=== PATIENT | female | born 1960 | race Caucasian/White ===

== ENCOUNTER → 2016-02-11 | Outpatient (CLI) | payer OTHER ==
[~2016-02-11] MED LIST: BIOT1CAP8 PO; BIOTCAP2 PO; CHOL2000 PO; CLB/200 PO; CYCL10TA6 PO; DOCU-105 PO; ESTRADIOL TOP; FLUT0.15 NAE; HYDR-5688 PO; LMC/150 PO; LOSA1TAB PO; LYR50 PO; MULT-506 PO; NEBI2.5T2 PO; NUTRTAB40 PO; OMEP20CA9 PO; OXYC-57 PO; PRAZ2CAP3 PO; PRD/1 PO; PRED10TA PO; PREG100C PO; PREG1CAP28 PO; PRMVC PV; SERT-234 PO; SPR25 PO; SRQ300 PO; TPRSR/25 PO; VITATAB19 PO; VST25HP PO
--- NOTE | 2016-02-11 13:03 | DIAGNOSTIC IMAGING REPORT ---
CHEST 2 VIEWS ROUTINE CLINICAL HISTORY: INFLUENZA LIKE ILLNESS COMPARISON STUDY: Chest radiograph December 31, 2009. FINDINGS: Lung volumes are normal. The left heart border slightly obscured. Right lung is clear. There is no evidence of pulmonary edema. Cardiac size is normal. Mediastinal contours are normal. IMPRESSION: Slight obscuration of the left heart border. The findings may reflect mild lingular airspace opacity. This could reflect atelectasis, consolidation or epicardial fat pad. Electronically signed by: Zen Wolfe M.D. 02/11/2016 1:01 PM
== END | disposition home or self-care (01) ==
LOC: C.RAD1850 12:42
PROVIDERS: ATTEND Family Medicine
DX: R69 Illness, unspecified (principal)

== ENCOUNTER → 2016-03-05 | Outpatient (CLI) | payer OTHER ==
[~2016-03-05] MED LIST changes: -ESTRADIOL TOP; -LOSA1TAB PO; -LYR50 PO; -NEBI2.5T2 PO; -NUTRTAB40 PO; -OXYC-57 PO; -VITATAB19 PO
--- NOTE | 2016-03-05 12:26 | MAMMOGRAPHY REPORT ---
BILATERAL DIGITAL SCREENING MAMMOGRAM TOMOSYNTHESIS WITH CAD: 03/05/2016 CLINICAL HISTORY: Routine screening. Patient has no complaints. TECHNIQUE: Breast tomosynthesis in addition to standard 2D mammography was performed. Current study was also evaluated with a Computer Aided Detection (CAD) system. COMPARISON: Comparison is made to exams dated: 02/04/2015 mammogram, 11/28/2012 mammogram, 6 mammogram, 02/18/2015 mammogram, 11/29/2013 mammogram, and 12/05/2012 mammogram - [facility]. BREAST COMPOSITION: The tissue of both breasts is heterogeneously dense, which may obscure small ma sses. FINDINGS: No suspicious masses, calcifications, or areas of architectural distortion are noted in e ither breast. There has been no significant interval change compared to prior exams. A biopsy marke r clip is noted in the right upper outer quadrant from prior benign stereotactic biopsy. Scattered bilateral benign-appearing calcifications are not significantly changed. IMPRESSION: ACR BI-RADS CATEGORY 2: BENIGN There is no mammographic evidence of malignancy. A 1 year screening mammogram is recommended. The p atient will receive written notification of the results. Approximately 10% of breast cancers are not detected with mammography. A negative mammographic repor t should not delay biopsy if a clinically suggestive mass is present. Lashae Keyes M.D. /:03/05/2016 12:14:59 Family Mediator: Bienvenido TONY)(Monae), [facility] letter sent: Normal 1/2 BI-RADS Code: ACR BI-RADS Category 2: Benign
== END | disposition home or self-care (01) ==
LOC: C.MAMM 11:20
PROVIDERS: ATTEND Obstetrics & Gynecology
DX: Z12.31 Encounter for screening mammogram for malignant neoplasm of breast (principal)

== ENCOUNTER → 2016-03-17 | Outpatient (CLI) | payer OTHER ==
--- NOTE | 2016-03-17 11:53 | DIAGNOSTIC IMAGING REPORT ---
RIGHT SHOULDER MIN 2 VIEWS ROUTINE CLINICAL HISTORY: M35.3 Polymyalgia [id number] Right shoulder painM75.51 Ac Right pain COMPARISON: None. DISCUSSION: Mild degenerative change glenohumeral joint. Mild degenerative change lateral aspect humeral head. Mild to moderate degenerative change acromioclavicular joint. No evidence for lytic or blastic process. There is no evidence for soft tissue swelling. IMPRESSION: Mild to moderate degenerative change. No acute bony abnormality. No evidence for bony erosive change. Electronically signed by: Ferny Martínez M.D. 03/17/2016 11:51 AM Dictated Date/Time: 03/17/2016 11:43 AM
--- NOTE | 2016-03-17 12:08 | DIAGNOSTIC IMAGING REPORT ---
C-SPINE ROUTINE 4 OR 5 VIEWS CLINICAL HISTORY: Polymyalgia rheumatica. Right shoulder pain. COMPARISON STUDY: Cervical spine MRI November 13, 2008. FINDINGS: There is straightening of the normal cervical lordosis. Vertebral body heights are maintained. No acute fracture or suspicious lesion is identified. There is moderate disc space narrowing at C5-C6 and moderate to marked disc space narrowing at C6-C7. There is moderate multilevel facet arthrosis within the lower cervical spine. Atlantodental interval is at the upper limits of normal. IMPRESSION: 1. No cervical spine fracture. 2. Moderate multilevel degenerative disc disease and facet arthrosis of the cervical spine, most pronounced at C6-C7. Electronically signed by: Zen Wolfe M.D. 03/17/2016 12:07 PM Dictated Date/Time: 03/17/2016 12:05 PM
== END | disposition home or self-care (01) ==
LOC: C.RAD1850 10:50
PROVIDERS: ATTEND Internal Medicine Rheumatology
DX: M25.511 Pain in right shoulder (principal); M35.3 Polymyalgia rheumatica; M75.51 Bursitis of right shoulder

== ENCOUNTER → 2016-03-31 | Day surgery (SDC) | payer OTHER ==
[2016-03-30 13:19] VITALS: Ht 162.6 cm; Wt 77.3 kg
[~2016-03-31] VITALS: Ht 162.6 cm; Wt 77.3 kg
[~2016-03-31] MED LIST changes: +BUPIVACAINE 0.25% 2.5MG/ML PF 10 ML VIAL INFIL ONE; -CLB/200 PO; +LIDOCAINE HCL 1% 20 ML VIAL ONE
--- NOTE | 2016-03-31 14:08 | History & Physical Bridge - SC ---
H&P Re-Evaluation Bridge Note: I have examined the patient, reviewed the History & Physical and in the interval since the performance of the History & Physical I have noted the following changes of clinical significance: No changes noted
[2016-03-31 15:04] VITALS: TEMP 37.2
--- NOTE | 2016-03-31 15:11 | Discharge Instructions ---
Discharge Instructions Visit Reason for Visit: Lumbar Spondylosis Without Myelopathy Or Radiculop Discharge Discharge Diagnosis / Problem: low back pain Discharge Goals Goal(s): Decrease discomfort, Improve function Activity Recommendations Activity Limitations: resume your previous activity Anesthesia . Post Anesthesia Instructions: If you have had General Anesthesia or IV Sedation: * Do not drive today. * Resume driving when surgeon permits. * Do not make important decisions or sign legal documents today. * Call surgeon for: 1. Temperature elevations greater than 101 degrees F. 2. Uncontrollable pain. 3. Excessive bleeding. 4. Persistent nausea and vomiting. 5. Medication intolerance (nausea, vomiting or rash). * For nausea and vomiting use only clear liquids such as: tea, soda, bouillon until nausea subsides, then gradually increase diet as tolerated. * If you have any concerns or questions, call your surgeon's office. If physician is unavailable and it is an emergency, call 911 or go to the nearest emergency room. . Diet Recommendations Recommended Home Diet: resume previous diet Procedures Procedures Performed: BILATERAL L5-S1 RADIO FREQUENCY DENERVATION Pending Studies Studies pending at discharge: no Medical Emergencies . Who to Call and When: Medical Emergencies: If at any time you feel your situation is an emergency, please call 911 immediately. . Non-Emergent Contact Non-Emergency issues call your: Specialist . . "Provider Documentation" section prepared by Tacho Cotton.
[2016-03-31 15:17] VITALS: BP 138/84; PULSE 71; O2SAT 96
--- NOTE | 2016-03-31 15:51 | OPERATIVE REPORT ---
DATE OF OPERATION: 03/31/2016 PREOPERATIVE DIAGNOSIS: Lumbar facet arthropathy, bilateral L5-S1 facet arthropathy with chronic low back pain. POSTOPERATIVE DIAGNOSIS: Same. PROCEDURE: Bilateral L5-S1 radiofrequency denervation procedure. SURGEON: Dr. Tacho Cototn. CONSENT: Verbal and written consent was obtained from the patient. Risks and benefits were reviewed. Risks include but are not limited to an abscess, allergic reaction and denervation. She wishes to proceed. PHYSICAL EXAMINATION: Pleasant female seated comfortably. She is point tender to palpation over L5-S1 facet areas. These are worse with extension, rotation. She has normal motor and sensory exam. PROCEDURE: The patient was taken back to the special procedures room of [facility]. She was maintained in a prone position. Backside was cleansed with Betadine x3 and a dry sterile dressing was applied. Fluoroscope was used to identify the L5 sacral hiatus and the sacral ala on the left side. Overlying skin was anesthetized with 1.5 mL of lidocaine 1% with a 1-1/2 inch 25 gauge 1.5-inch needle. She then had sensory stimulation done at both sites with sensitivity to 0.2 volts. Motor stimulation provoked paraspinal spasms, but nothing radiating down the leg or beyond the top of the buttocks. She had this done at both levels and then had an anesthetization with 1 mL done at both levels and then underwent denervation 80 degrees 100 seconds x2 at L5, then at the sacral ala without problems. Following the denervation, she was injected with 1 mL of bupivacaine 0.25% at each site. The right L5 transverse process junction and the right sacral ala then were fluoroscopically identified. Overlying skin anesthetized with 1.5 mL of lidocaine 1% with a 25 gauge 1.5-inch needle. A 22 gauge 10 cm Commissioner needle contacted the bony target at each site as it had done previously and stimulated to 0.2 and 0.1 volts respectively at L5 and the sacral ala. Motor stimulation provoked localized robust paraspinal thumping but nothing radiating down the leg or the foot. She underwent anesthetization with 1 mL lidocaine 1% at each site and then denervation 80 degrees 100 seconds x2 at each site. This was followed by bupivacaine 0.25% 1 mL at each site which was tolerated. DISPOSITION: 1. The patient is taken out into the discharge recovery area where she will be discharged home once discharge criteria have been met. 2. Follow up in the [facility] office in 2-4 weeks. I attest to the content of the Intraoperative Record and any orders documented therein. Any exceptio ns are noted below.
== END | disposition home or self-care (01) ==
LOC: X.SURG 13:14
PROVIDERS: ATTEND Physical Medicine & Rehabilitation
DX: M12.88 Other specific arthropathies, not elsewhere classified, other specified site (principal); M54.5 Low back pain

== ENCOUNTER → 2016-05-13 | Outpatient (CLI) | payer OTHER ==
[~2016-05-13] MED LIST changes: -BUPIVACAINE 0.25% 2.5MG/ML PF 10 ML VIAL INFIL ONE; +ESTRADIOL TOP; -LIDOCAINE HCL 1% 20 ML VIAL ONE; +LOSA1TAB PO; +NEBI2.5T2 PO; +NUTRTAB40 PO
== END | disposition home or self-care (01) ==
LOC: C.LAB1850 10:24
PROVIDERS: ATTEND Internal Medicine Rheumatology
DX: M35.3 Polymyalgia rheumatica (principal); M75.51 Bursitis of right shoulder; R77.8 Other specified abnormalities of plasma proteins

== ENCOUNTER → 2016-05-19 | Outpatient (CLI) | payer OTHER | END | disposition home or self-care (01) | LOC: C.PAPS 08:47 | PROVIDERS: ATTEND Obstetrics & Gynecology | DX: Z12.4 Encounter for screening for malignant neoplasm of cervix (principal); Z87.42 Personal history of other diseases of the female genital tract ==

== ENCOUNTER → 2016-05-19 | Outpatient (CLI) | payer OTHER | END | disposition home or self-care (01) | LOC: C.LAB1850 14:51 | PROVIDERS: ATTEND Obstetrics & Gynecology | DX: R61 Generalized hyperhidrosis (principal); Z12.4 Encounter for screening for malignant neoplasm of cervix; Z87.42 Personal history of other diseases of the female genital tract ==

== ENCOUNTER → 2016-05-27 | Day surgery (SDC) | payer OTHER ==
[2016-04-30 08:44] VITALS: Ht 162.6 cm; Wt 77.3 kg
[~2016-05-27] VITALS: Ht 162.6 cm; Wt 77.3 kg
[~2016-05-27] MED LIST changes: +BUPIVACAINE 0.25% 2.5MG/ML PF 10 ML VIAL INFIL ONE; +LIDOCAINE HCL 1% 20 ML VIAL ONE
[2016-05-27 13:49] VITALS: BP 125/76; PULSE 70; TEMP 36.7; O2SAT 95
--- NOTE | 2016-05-27 13:57 | Discharge Instructions ---
Discharge Instructions Date of Service May 27, 2016. Visit Reason for Visit: Lumbar Spondylosis Discharge Discharge Diagnosis / Problem: low back pain Discharge Goals Goal(s): Decrease discomfort, Improve function Activity Recommendations Activity Limitations: resume your previous activity Anesthesia . Post Anesthesia Instructions: If you have had General Anesthesia or IV Sedation: * Do not drive today. * Resume driving when surgeon permits. * Do not make important decisions or sign legal documents today. * Call surgeon for: 1. Temperature elevations greater than 101 degrees F. 2. Uncontrollable pain. 3. Excessive bleeding. 4. Persistent nausea and vomiting. 5. Medication intolerance (nausea, vomiting or rash). * For nausea and vomiting use only clear liquids such as: tea, soda, bouillon until nausea subsides, then gradually increase diet as tolerated. * If you have any concerns or questions, call your surgeon's office. If physician is unavailable and it is an emergency, call 911 or go to the nearest emergency room. . Diet Recommendations Recommended Home Diet: resume previous diet Procedures Procedures Performed: BILATERAL L4-5 RADIO FREQUENCY DENERVATION Pending Studies Studies pending at discharge: no Medical Emergencies . Who to Call and When: Medical Emergencies: If at any time you feel your situation is an emergency, please call 911 immediately. . Non-Emergent Contact Non-Emergency issues call your: Specialist . . "Provider Documentation" section prepared by Tacho Cotton. .
--- NOTE | 2016-05-27 14:23 | OPERATIVE REPORT ---
DATE OF OPERATION: 05/27/2016 PREOPERATIVE DIAGNOSIS: Bilateral L4-L5 facet arthropathy. POSTOPERATIVE DIAGNOSIS: Same. PROCEDURE: Bilateral L4 facet radiofrequency denervation. INDICATIONS: The patient is a 55-year-old white female that underwent bilateral L5-S1 facet a number of weeks ago with complete relief of lower back pain; however, she reports that she still has some residual pain above the level of the denervation and was inquiring about denervating a higher up level. PHYSICAL EXAMINATION: She has point tenderness to palpation of bilateral L4 facet, nontender below this, worse with extension, rotation. CONSENT: Verbal and written consent was obtained from the patient. Risks and benefits were reviewed. Risks include but are not limited to allergic reaction, abscess, and denervation. She wishes to proceed. PROCEDURE: The patient was taken back to the special procedures room of the [facility] where she was maintained in a prone position. Backside was cleansed with Betadine x3 and a dry sterile dressing was applied. Fluoroscope was used to identify the L4 transverse process on the left and the overlying skin was anesthetized with 2.5 mL of lidocaine 1% with a 25 gauge 1.5-inch needle. A 22 gauge 10 cm [place] needle was then directed towards the L4 transverse process. Sensory stimulation provoked sensation at 0.2 volts and motor stimulation produced robust paraspinal spasms nothing radiating down the leg. She underwent an additional anesthetization of the nerve area with 1 mL lidocaine 1% and then underwent denervation 80 degrees 100 seconds x1 and on the second one, she developed significant pain in the low back and that was stopped at 32 seconds. This was then followed by a milliliter injection of bupivacaine 0.25%. The right L4 transverse process junction was then fluoroscopically identified. Overlying skin was anesthetized with 2.5 mL of lidocaine 1% with a 25 gauge 1.5-inch needle. A 22 gauge 10 cm [place] needle then contacted the bony target. Sensory stimulation was as sensitive as 0.2 volts. Motor stimulation provoked robust paraspinal spasms and she then underwent injection after negative aspiration of 1 mL lidocaine 1%, underwent following the additional numbing denervation 80 degrees 100 seconds x2 and then additional 1 mL of bupivacaine 0.25% was injected in. Procedure was well tolerated. DISPOSITION: The patient is taken out into the discharge recovery area. The procedure was only done bilaterally at L4 because she had recently had bilaterally done at L5, so we were able to block an additional level L4-L5 with just a single level today as she has previously had L5-S1 blocked, in the past 4 weeks. It should provide her with relief bilaterally at L4-L5 and L5-S1 for months to come. She will followup in the [facility] office for reevaluation. I attest to the content of the Intraoperative Record and any orders documented therein. Any exceptio ns are noted below.
== END | disposition home or self-care (01) ==
LOC: X.SURG 11:57
PROVIDERS: ATTEND Physical Medicine & Rehabilitation
DX: M47.816 Spondylosis without myelopathy or radiculopathy, lumbar region (principal); Z79.899 Other long term (current) drug therapy

== ENCOUNTER → 2016-06-18 | Outpatient (CLI) | payer OTHER ==
[~2016-06-18] MED LIST changes: -BUPIVACAINE 0.25% 2.5MG/ML PF 10 ML VIAL INFIL ONE; -LIDOCAINE HCL 1% 20 ML VIAL ONE
== END | disposition home or self-care (01) ==
LOC: C.LAB1850 11:43
PROVIDERS: ATTEND Internal Medicine Rheumatology
DX: M35.3 Polymyalgia rheumatica (principal)

== ENCOUNTER 2016-06-25 16:59 | Emergency (ER) | payer OTHER ==
[~2016-06-25] VITALS: Ht 160 cm; Wt 82.0 kg
[~2016-06-25 16:59] MED LIST changes: -BIOTCAP2 PO; -CHOL2000 PO; -DOCU-105 PO; -ESTRADIOL TOP; -HYDR-5688 PO; -LMC/150 PO; -LOSA1TAB PO; -NEBI2.5T2 PO; -NUTRTAB40 PO; -OMEP20CA9 PO; -SRQ300 PO; -TPRSR/25 PO; -VST25HP PO
[2016-06-25 17:02] VITALS: TEMP 37; Ht 160 cm; Wt 82.0 kg
[2016-06-25] MEDS ORDERED: HYDROCODONE/ACETAMOPHEN 5/325MG TAB PO ONE (18:30)
[2016-06-25 18:35] VITALS: BP 148/65; PULSE 75; O2SAT 94
[2016-06-25] MEDS ORDERED: BIOTCAP2 PO (18:38)
[2016-06-25] MEDS ORDERED: VST25HP PO (18:38)
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
[2016-06-25] MEDS ORDERED: HYDR-5688 PO (18:53)
[2016-06-25] MEDS ORDERED: OMEP20CA9 PO (18:59)
[2016-06-25] MEDS ORDERED: SRQ300 PO (18:59)
[2016-06-25] MEDS ORDERED: DOCU-105 PO (19:10)
[2016-06-25] MEDS ORDERED: CHOL2000 PO (19:10)
[2016-06-25] MEDS ORDERED: LMC/150 PO (19:10)
[2016-06-25] MEDS ORDERED: TPRSR/25 PO (21:18)
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
[2016-11-17] MEDS ORDERED: LOSA1TAB PO (12:16)
[2017-01-03] MEDS ORDERED: NEBI2.5T2 PO (14:17)
[2017-01-03] MEDS ORDERED: NUTRTAB40 PO (14:17)
[2017-01-03] MEDS ORDERED: ESTRADIOL TOP (14:18)
== END 2016-06-25 19:05 | disposition home or self-care (01) ==
LOC: C.EDB 17:00 → C.EDD 19:05
DX: R68.84 Jaw pain (principal); M54.5 Low back pain; V43.52XA Car driver injured in collision with other type car in traffic accident, initial encounter; Y92.488 Other paved roadways as the place of occurrence of the external cause; G89.29 Other chronic pain; M48.00 Spinal stenosis, site unspecified; I10 Essential (primary) hypertension; K21.9 Gastro-esophageal reflux disease without esophagitis; M35.3 Polymyalgia rheumatica; F43.10 Post-traumatic stress disorder, unspecified; F32.9 Major depressive disorder, single episode, unspecified; F41.9 Anxiety disorder, unspecified; Z90.49 Acquired absence of other specified parts of digestive tract; Z79.899 Other long term (current) drug therapy

== ENCOUNTER → 2016-07-28 | Day surgery (SDC) | payer OTHER ==
[2016-07-16 15:24] VITALS: Ht 162.6 cm; Wt 77.3 kg
[~2016-07-28] VITALS: Ht 162.6 cm; Wt 77.3 kg
[~2016-07-28] MED LIST changes: +AcetaZOLAMIDE 250 MG TAB ONE; -BIOT1CAP8 PO; +BIOTCAP2 PO; +BUPIVACAINE 0.25% 2.5MG/ML PF 10 ML VIAL ONE; +CHOL2000 PO; +DOCU-105 PO; +ESTRADIOL TOP; +IOPAMIDOL INJ 61% 15 ML VIAL ONE; +LIDOCAINE HCL 1% MPF 5 ML VIAL ONE; +LMC/150 PO; +LOSA1TAB PO; +NEBI2.5T2 PO; +NUTRTAB40 PO; +OMEP20CA9 PO; -PREG1CAP28 PO; +SRQ300 PO; +TPRSR/25 PO; +VST25HP PO
--- NOTE | 2016-07-28 15:56 | Discharge Instructions ---
Discharge Instructions Date of Service Jul 28, 2016. Visit Reason for Visit: Sacroiliitis Discharge Discharge Diagnosis / Problem: low back pain Discharge Goals Goal(s): Decrease discomfort, Improve function Activity Recommendations Activity Limitations: resume your previous activity Anesthesia . Post Anesthesia Instructions: If you have had General Anesthesia or IV Sedation: * Do not drive today. * Resume driving when surgeon permits. * Do not make important decisions or sign legal documents today. * Call surgeon for: 1. Temperature elevations greater than 101 degrees F. 2. Uncontrollable pain. 3. Excessive bleeding. 4. Persistent nausea and vomiting. 5. Medication intolerance (nausea, vomiting or rash). * For nausea and vomiting use only clear liquids such as: tea, soda, bouillon until nausea subsides, then gradually increase diet as tolerated. * If you have any concerns or questions, call your surgeon's office. If physician is unavailable and it is an emergency, call 911 or go to the nearest emergency room. . Diet Recommendations Recommended Home Diet: resume previous diet Procedures Procedures Performed: Right Sacroiliac Joint Injection Pending Studies Studies pending at discharge: no Medical Emergencies . Who to Call and When: Medical Emergencies: If at any time you feel your situation is an emergency, please call 911 immediately. . Non-Emergent Contact Non-Emergency issues call your: Specialist . . "Provider Documentation" section prepared by Tacho Cotton. .
[2016-07-28 16:02] VITALS: BP 127/81; PULSE 60; O2SAT 95
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
== END | disposition home or self-care (01) ==
LOC: X.SURG 14:14
PROVIDERS: ATTEND Physical Medicine & Rehabilitation
DX: M46.1 Sacroiliitis, not elsewhere classified (principal)

== ENCOUNTER → 2016-07-31 | Outpatient (CLI) | payer OTHER ==
[~2016-07-31] MED LIST changes: -AcetaZOLAMIDE 250 MG TAB ONE; -BUPIVACAINE 0.25% 2.5MG/ML PF 10 ML VIAL ONE; -IOPAMIDOL INJ 61% 15 ML VIAL ONE; -LIDOCAINE HCL 1% MPF 5 ML VIAL ONE
== END | disposition home or self-care (01) ==
LOC: C.LAB 11:59
PROVIDERS: ATTEND Internal Medicine Rheumatology
DX: M35.3 Polymyalgia rheumatica (principal)

== ENCOUNTER → 2016-12-02 | Day surgery (SDC) | payer OTHER ==
[2016-11-17 12:21] VITALS: Ht 162.6 cm; Wt 77.3 kg
[~2016-12-02] VITALS: Ht 162.6 cm; Wt 77.3 kg
[~2016-12-02] MED LIST changes: +BUPIVACAINE 0.25% 2.5MG/ML PF 10 ML VIAL ONE; -ESTRADIOL TOP; +IOPAMIDOL INJ 61% 15 ML VIAL ONE; +LIDOCAINE HCL 1% MPF 5 ML VIAL ONE; -NEBI2.5T2 PO; -NUTRTAB40 PO
--- NOTE | 2016-12-02 15:52 | Discharge Instructions ---
Discharge Instructions Date of Service Dec 02, 2016. Visit Reason for Visit: Sacroiliitis Discharge Discharge Diagnosis / Problem: low back pain Discharge Goals Goal(s): Decrease discomfort, Improve function Activity Recommendations Activity Limitations: resume your previous activity Anesthesia . Post Anesthesia Instructions: If you have had General Anesthesia or IV Sedation: * Do not drive today. * Resume driving when surgeon permits. * Do not make important decisions or sign legal documents today. * Call surgeon for: 1. Temperature elevations greater than 101 degrees F. 2. Uncontrollable pain. 3. Excessive bleeding. 4. Persistent nausea and vomiting. 5. Medication intolerance (nausea, vomiting or rash). * For nausea and vomiting use only clear liquids such as: tea, soda, bouillon until nausea subsides, then gradually increase diet as tolerated. * If you have any concerns or questions, call your surgeon's office. If physician is unavailable and it is an emergency, call 911 or go to the nearest emergency room. . Diet Recommendations Recommended Home Diet: resume previous diet Procedures Procedures Performed: BILATERAL SACROILIAC JOINT INJECTIONS Pending Studies Studies pending at discharge: no Medical Emergencies . Who to Call and When: Medical Emergencies: If at any time you feel your situation is an emergency, please call 911 immediately. . Non-Emergent Contact Non-Emergency issues call your: Specialist . . "Provider Documentation" section prepared by Tacho Cotton. .
[2016-12-02 15:55] VITALS: TEMP 36.7
[2016-12-02 16:02] VITALS: BP 129/83; PULSE 82; O2SAT 96
--- NOTE | 2016-12-02 16:10 | OPERATIVE REPORT ---
DATE OF OPERATION: 12/02/2016 PREOPERATIVE DIAGNOSIS: Bilateral sacroiliitis. POSTOPERATIVE DIAGNOSIS: Same. PROCEDURE: Bilateral sacroiliac joint injection under fluoroscopic guidance. INDICATIONS: The patient is a 56-year-old female who presents today for bilateral SI joint injections. She has had injections done before in July that were very effective on the right side; however, the pain has come back and is now bilateral. Given success she has, she wishes another series of injections to provide her with sustained relief, up to 4 months. PHYSICAL EXAMINATION: Pleasant female seated comfortably. She has point tenderness to palpation of the bilateral SI joints, right greater than left, which reproduced with extension and modified Wellington maneuver positive bilaterally. She has no motor weakness or sensory disturbance of her lower extremities. CONSENT: Verbal and written consent was obtained from the patient. Risks and benefits were reviewed. Risks include but are not limited to abscess and allergic reaction. The patient wishes to proceed. DESCRIPTION OF PROCEDURE: The patient was taken back to the special procedures room of the [facility] where she was maintained in a prone position. Backside was cleansed with Betadine x3 and a dry sterile dressing was applied. Fluoroscope was used to identify the left SI joint and the overlying skin was anesthetized with 2.5 mL of lidocaine 1% with a 25 gauge 1.5-inch needle. A 25 gauge 3.5 inch spinal needle was then directed into the SI joint under fluoroscopic guidance. Isovue 300 contrast 0.25 mL was injected in which demonstrated intraarticular uptake. She then underwent injection after negative aspiration of 40 mg of Depo-Medrol and 1.5 mL of bupivacaine 0.25%. The right SI joint then was fluoroscopically identified. The overlying skin was anesthetized with 2.5 mL of lidocaine 1% with a 25 gauge 1.5-inch needle. A 25 gauge 3.5 inch spinal needle was then directed into the joint. Isovue-300 contrast 0.25 mL was injected in which demonstrated intraarticular uptake. She then underwent injection after negative aspiration of 40 mg of Depo-Medrol and 1.5 mL of bupivacaine 0.25%. Injection was well tolerated. DISPOSITION: 1. The patient is taken out into the discharge recovery area where she will be discharged home once discharge criteria have been met. 2. Follow up in the [facility] office in 2-4 weeks. I attest to the content of the Intraoperative Record and any orders documented therein. Any exception s are noted below.
== END | disposition home or self-care (01) ==
LOC: X.SURG 13:49
PROVIDERS: ATTEND Physical Medicine & Rehabilitation
DX: M46.1 Sacroiliitis, not elsewhere classified (principal)

== ENCOUNTER → 2016-12-06 | Outpatient (CLI) | payer OTHER ==
[~2016-12-06] MED LIST changes: -BUPIVACAINE 0.25% 2.5MG/ML PF 10 ML VIAL ONE; -IOPAMIDOL INJ 61% 15 ML VIAL ONE; -LIDOCAINE HCL 1% MPF 5 ML VIAL ONE
== END | disposition home or self-care (01) ==
LOC: C.RDSM 08:30
PROVIDERS: ATTEND Physical Medicine & Rehabilitation Sports Medicine
DX: M25.512 Pain in left shoulder (principal)

== ENCOUNTER → 2016-12-25 | Outpatient (CLI) | payer OTHER ==
[2016-12-25 09:03] LABS: BLOOD UREA NITROGEN 21 mg/dl (7-18); BUN/CREATININE RATIO 22.7 (10-20); CALCIUM 9.2 mg/dl (8.5-10.1); CARBON DIOXIDE 29 mmol/L (21-32); CHLORIDE 105 mmol/L (98-107); CREATININE 0.91 mg/dl (0.60-1.20); GLUCOSE 94 mg/dl (70-99); POTASSIUM 4.3 mmol/L (3.5-5.1); SODIUM 141 mmol/L (136-145)
[2016-12-25 09:13] LABS: THYROID STIMULATING HORMONE 0.839 uIu/ml (0.300-4.500)
== END | disposition home or self-care (01) ==
LOC: C.LAB 08:05
PROVIDERS: ATTEND Internal Medicine Endocrinology, Diabetes & Metabolism
DX: R79.82 Elevated C-reactive protein (CRP) (principal); M35.3 Polymyalgia rheumatica; M75.50 Bursitis of unspecified shoulder; R00.2 Palpitations; R23.2 Flushing; R94.6 Abnormal results of thyroid function studies; I10 Essential (primary) hypertension

== ENCOUNTER → 2016-12-27 | Outpatient (CLI) | payer OTHER ==
--- NOTE | 2016-12-27 07:58 | DIAGNOSTIC IMAGING REPORT ---
ORBIT CT HISTORY: ABNORMAL THYROID FUNCTION TEST. Evaluate for orbit abnormality. TECHNIQUE: Multiaxial CT images of the orbits were performed without the use of intravenous contrast reformatted in the coronal plane. COMPARISON STUDY: None. FINDINGS: The visualized brain parenchyma is unremarkable. The globes and retrobulbar fat are intact. The optic nerves are normal in caliber. The extraocular muscles are symmetric and normal in thickness. No evidence for proptosis. No change in the mixed lytic and sclerotic expansile lesion seen within the right side of the clivus and occipital bone. 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 The paranasal sinuses and mastoid air cells are clear. IMPRESSION: Normal orbits. Electronically signed by: Serafin Aguirre M.D. 12/27/2016 7:57 AM Dictated Date/Time: 12/27/2016 7:52 AM
== END | disposition home or self-care (01) ==
LOC: C.CTS 06:57
PROVIDERS: ATTEND Internal Medicine Endocrinology, Diabetes & Metabolism
DX: R94.6 Abnormal results of thyroid function studies (principal)

== ENCOUNTER → 2017-01-03 | Outpatient (CLI) | payer OTHER ==
[~2017-01-03] MED LIST changes: +ESTRADIOL TOP; +NEBI2.5T2 PO; +NUTRTAB40 PO
[2017-01-03 09:41] LABS: BLOOD UREA NITROGEN 14 mg/dl (7-18); BUN/CREATININE RATIO 14.9 (10-20); CALCIUM 8.9 mg/dl (8.5-10.1); CARBON DIOXIDE 28 mmol/L (21-32); CHLORIDE 102 mmol/L (98-107); CREATININE 0.95 mg/dl (0.60-1.20); GLUCOSE 103 mg/dl (70-99); POTASSIUM 3.7 mmol/L (3.5-5.1); SODIUM 138 mmol/L (136-145)
== END | disposition home or self-care (01) ==
LOC: C.LAB 07:23
PROVIDERS: ATTEND Internal Medicine Endocrinology, Diabetes & Metabolism
DX: I10 Essential (primary) hypertension (principal)

== ENCOUNTER → 2017-01-18 | Outpatient (CLI) | payer OTHER ==
[~2017-01-18] MED LIST changes: -BIOTCAP2 PO; -CHOL2000 PO; -DOCU-105 PO; -MULT-506 PO; -PRED10TA PO; -TPRSR/25 PO
== END | disposition home or self-care (01) ==
LOC: C.MAMM 14:49
PROVIDERS: ATTEND Internal Medicine Endocrinology, Diabetes & Metabolism
DX: E55.9 Vitamin D deficiency, unspecified (principal)

== ENCOUNTER → 2017-01-25 | Outpatient (CLI) | payer OTHER ==
[~2017-01-25] MED LIST changes: +GADAVIST IV PRN
--- NOTE | 2017-01-26 08:11 | DIAGNOSTIC IMAGING REPORT ---
MRI OF THE ABDOMEN WITH AND WITHOUT CONTRAST CLINICAL HISTORY: I10 [id number] Elevated plasma [id number] COMPARISON STUDY: Abdominal ultrasound December 22, 2010. TECHNIQUE: Utilizing a 1.5 Bria magnet and dedicated coil, multiplanar, multiecho imaging of the abdomen was performed pre and postcontrast administration. Post contrast imaging was performed utilizing dynamic enhancement. Injection of 8.5 cc of Gadavist IV was uneventful. FINDINGS: A small hiatal hernia is noted. No adrenal masses are present. No abdominal lymphadenopathy is present. There is no abdominal mass. Note is made of a 1.6 cm right hepatic dome lesion which follows fat signal intensity on all pulsing sequences and suggests a lipoma. Liver morphology is normal. There is no biliary or pancreatic ductal dilatation. The spleen, adrenal glands and pancreas are unremarkable. There is a left upper quadrant splenule. There is no abdominal ascites. No suspicious marrow replacement is present. Caliber of visualized small and large bowel are normal. IMPRESSION: No adrenal mass to suggest pheochromocytoma. No abdominal mass to suggest paraganglioma. Electronically signed by: Zen Wolfe M.D. 01/26/2017 8:10 AM Dictated Date/Time: 01/25/2017 4:29 PM
== END | disposition home or self-care (01) ==
LOC: C.MRI 14:14
PROVIDERS: ATTEND Internal Medicine Endocrinology, Diabetes & Metabolism
DX: I10 Essential (primary) hypertension (principal); R79.89 Other specified abnormal findings of blood chemistry

== ENCOUNTER → 2017-01-26 | Outpatient (CLI) | payer OTHER ==
[~2017-01-26] MED LIST changes: -GADAVIST IV PRN
== END | disposition home or self-care (01) ==
LOC: C.LABBC 13:49
PROVIDERS: ATTEND Internal Medicine Rheumatology
DX: M35.3 Polymyalgia rheumatica (principal)

== ENCOUNTER → 2017-02-03 | Day surgery (SDC) | payer OTHER ==
[2017-01-03 14:27] VITALS: Ht 162.6 cm; Wt 81.8 kg
[~2017-02-03] VITALS: Ht 162.6 cm; Wt 81.8 kg
[~2017-02-03] MED LIST changes: +ATROPINE SULFATE 0.1 MG/ML 5ML SYR IV PRN; +CLINDAMYCIN PHOS 150 MG/ML 2 ML VIAL IV SCH; +EpHEDrine SULFATE INJ 50 MG/ML AMP IV PRN; +EpHEDrine SULFATE INJ 50 MG/ML AMP ONE; +EpINEphrine INJ 1MG/ML AMP 1 MG/ML AMP ONE; +FENTANYL CITRATE INJ 50 MCG/1 ML 2 ML VIAL IV PRN; +FENTANYL CITRATE INJ 50 MCG/1 ML 2 ML VIAL ONE; +GLYCOPYRROLATE INJ 0.2 MG/ML VIAL ONE; +HYDROCORTISONE SOD SUCCINATE 100 MG/2 ML VIAL IV SCH; +LACTATED RINGER'S 1000ML 1,000 ML IV SCH; +LIDOCAINE HCL 2% 2 ML VIAL (20MG/ML) ONE; +LIDOCAINE/EPINEPHRINE 1% INJ 50 ML VIAL ONE; +LYR50 PO; +MIDAZOLAM HCL 1 MG/ML 2ML VIAL ONE; +MoRPHine SULFATE 2 MG/ML CARP IV PRN; +MoRPHine SULFATE 4 MG/ML 1 ML CARP\\VIAL IV PRN; +NEOSTIGMINE METHYLSULFATE 5 MG/5 ML SYR ONE; +NURSING VERBAL MED ORDER ONE; +ONDANSETRON INJ 2 MG/ML 2 ML VIAL IV PRN; +ONDANSETRON INJ 2 MG/ML 2 ML VIAL ONE; +OXYC-57 PO; +OXYCODONE/ACETAMINOPHEN 5-325 TAB PO PRN; +PROPOFOL IV EMULSION 10 MG/ML 20 ML VIAL IV ONE; +ROCURONIUM BROMIDE 10 MG/ML 5 ML VIAL IV ONE; +ROPIVACAINE 0.5% 5 MG/ML 30 ML VIAL ONE; +SODIUM CHLORIDE 0.9% 1000ML 1,000 ML IV SCH; +SODIUM CHLORIDE 0.9% INJ 10 ML VIAL ONE; +SPIR25TA6 PO; -SPR25 PO; +VITATAB19 PO
[2017-02-03] MEDS: CLINDAMYCIN PHOS 150 MG/ML 2 ML VIAL IV SCH ×2 (07:14→08:38)
--- NOTE | 2017-02-03 11:26 | [facility] Post Operative Brief Note ---
Immediate Operative Summary Operative Date Feb 03, 2017. Pre-Operative Diagnosis Rotator Cuff Tear Post-Operative Diagnosis subluxing biceps tendon, partial ubscapuaris tear, coracoid impingement Procedure(s) Performed Left Shoulder Arthroscopic, Debridement, Arthroscopic Subacromial Decompression , Coricoplasty, Biceps Tenodesis, Subscapularis Repair Surgeon Dr. Crawley Stop Attacher Surgeon(s) Melany Gaviria PA-C Estimated Blood Loss 50ml Findings coracoid impingement, partial supraspinatus tear, and subscap tear, subacromial impingement Specimens None Anesthesia LMA with block Complication(s) None Disposition Recovery Room / PACU
--- NOTE | 2017-02-03 11:51 | Discharge Instructions-SurgCtr ---
Discharge Instructions Date of Service Feb 03, 2017. Visit Reason for Visit: Left Shoulder Biceps Tendon Rupture, Poss Subscapu Discharge Discharge Diagnosis / Problem: left shoulder biceps tendon rupture. Subscapularis tear. Discharge Goals Goal(s): Decrease discomfort, Improve function, Increase independence Activity Recommendations Activity Limitations: per Instructions/Follow-up section Weightbearing Status: Left non-weightbearing (upper extremity) Anesthesia . Post Anesthesia Instructions: If you have had General Anesthesia or IV Sedation: * Do not drive today. * Resume driving when surgeon permits. * Do not make important decisions or sign legal documents today. * Call surgeon for: 1. Temperature elevations greater than 101 degrees F. 2. Uncontrollable pain. 3. Excessive bleeding. 4. Persistent nausea and vomiting. 5. Medication intolerance (nausea, vomiting or rash). * For nausea and vomiting use only clear liquids such as: tea, soda, bouillon until nausea subsides, then gradually increase diet as tolerated. * If you have any concerns or questions, call your surgeon's office. If physician is unavailable and it is an emergency, call 911 or go to the nearest emergency room. . Instructions / Follow-Up Instructions / Follow-Up The following are instructions to follow after "Shoulder Surgery" including, Acromioplasty, Rotator Cuff Repair and Instability Surgery ACTIVITY RECOMMENDATIONS: * Minimize activity after surgery. * No excessive walking, jogging, sports or laboring. * Return to activity is individualized depending on the patient and type of surgery. * Driving is not permitted until at least your first post operative visit. Please ask your doctor when it is safe to resume driving. * Expect increased discomfort with increased activity. Continue to ice the shoulder as needed. SCHOOL/WORK RECOMMENDATIONS: * You may return to sedentary work or school when you are feeling more comfortable. This is usually 3-7 days after surgery. MEDICATIONS: * You will have a prescription for pain medication and an anti-inflammatory medication after surgery. * Use the pain medication for severe pain and the anti-inflammatory for less severe pain. Once the pain medication has run out, try to use the anti-inflammatory medication. If this is not effective, contact the office for assistance. * The pain medication may cause nausea, constipation and drowsiness. You should see how they affect you before driving or similar activity. * The anti-inflammatory medication may cause stomach upset and bleeding. If this occurs let your doctor know immediately . * Take a stool softener like Colace or a laxative like Senokot to prevent constipation. DIET: * Resume previous diet. SPECIAL CARE: ICE: You have the option of an ice cooler, gel packs or ice bags. * If you have an ice cooler, refer to the instructions for that device. The ice cooler may be used continuously. * If you do not have an ice cooler, you will need to use ice bags or gel packs. Do not apply ice directly to the skin. Use a thin dressing or hiram shirt between the skin and ice bag. Apply ice for 20-30 minutes and repeat every 2-4 hours. This is especially important for the first 7-10 days after surgery. Once the pain improves, use ice as needed. ELEVATION: * You may be more comfortable sleeping in an upright position. Use the sling to elevate your arm. DRESSING: * Your dressing will be changed at your first therapy appointment approximately 4-5 days after surgery. Band-aids, tape strips or gauze may be applied. You may then change your dressing daily. * Reapply dressing followed by the EBIce cooling pad (if chosen) and then the sling. * Always wash your hands prior to touching the incision area. * Once the stitches are removed, you may leave the wound open to air or cover with gauze. * Expect some bloody drainage for the first few days after surgery. * Leave the tape strips, if present, in place for 5-7 days. * Band-aids and gauze may be changed daily. * There may be a gauze pad in your armpit area. This can be changed daily or replaced by a dry washcloth. SLING/BRACE: * You will need to use a sling or brace after surgery. The length of time the sling is used is dependent upon the type of surgery performed. * Arthroscopic Acromioplasty requires use of the sling for 2-4 weeks for comfort. * Labral procedures and Rotator Cuff Repairs require use of the sling for a longer period of time. Please check with your doctor prior to discontinuing the sling. BATHING: * You may shower or sponge-bathe immediately after surgery. The post operative shoulder dressing is mostly water-tight. You may shower right over this dressing, but be reasonably careful not to get the gauze or incision wet. * Once the dressing has been changed on the fourth or fifth day after surgery, you may shower and get the incision wet. * Wash with regular soap and water. * Do not bathe (submerge the incision), soak, swim or use a hot tub until the incision is completely healed over with normal skin and the doctor has given the OK to proceed. * There is no need to apply any ointments, powders or salves to your incision. * Do not apply alcohol or hydrogen peroxide directly to the incision. * Diluted peroxide (50:50 mixture with sterile saline) may be used to clean dried blood from around the incision area. THERAPY: * You will begin therapy four or five days after surgery. * Organized therapy with the therapist is important for the first 2-4 months after surgery depending on the type of procedure. During that time you will attend therapy 1-3 times per week. * You will also need to do daily exercises for range of motion and strength as instructed. * Patients who have a Capsular Shift Procedure will need to abide by temporary range of motion limitations. * Patients having Rotator Cuff Surgery are not allowed to actively lift their arms until 4-6 weeks after surgery. * Please check with your doctor regarding appropriate motion restrictions. FOLLOW UP VISIT: * If not already scheduled, please call the office at to schedule a follow-up appointment for 10 days after surgery and monthly thereafter. * You have a physical therapy appointment on 02/09/2017 at 10:30 AM. * You have a follow-up appointment scheduled with Dr. Crawley on 02/16/2017 at 12:00 PM Diet Recommendations Home Diet: no limitations, resume previous diet Procedures Procedures Performed: Left Shoulder Arthroscopic, Debridement, Arthroscopic Subacromial Decompression , Coricoplasty, Biceps Tenodesis, Subscapularis Repair Pending Studies Studies pending at discharge: no Medical Emergencies . Who to Call and When: Medical Emergencies: If at any time you feel your situation is an emergency, please call 911 immediately. . Non-Emergent Contact Non-Emergency issues call your: Surgeon Call Non-Emergent contact if: temperature is above 101, your pain is not controlled, your pain is worsening, wound has increased drainage, wound has increased redness, wound has increased pain, you have any medication questions . . "Provider Documentation" section prepared by Annie Gaviria. . [place] Drug Monitoring Program Search Results: patient reviewed within database, no issues identified
--- NOTE | 2017-02-03 11:54 | [facility] Operative Report ---
Operative Report Operative Date Feb 03, 2017. Pre-Operative Diagnosis Rotator Cuff Tear Post-Operative Diagnosis subluxing biceps tendon, partial ubscapuaris tear, coracoid impingement Procedure(s) Performed Left Shoulder Arthroscopic, Debridement, Arthroscopic Subacromial Decompression , Coricoplasty, Biceps Tenodesis, Subscapularis Repair Surgeon Dr. Crawley Wood Planer Surgeon(s) Annie Gaviria PA-C Estimated Blood Loss 50ml Findings Subscapularis tear, subluxating biceps tendon, bursitis Specimens None Anesthesia LMA with block Complication(s) None Disposition Recovery Room / PACU Indications Patient is a 56-year-old female with complaints of left shoulder pain and snapping. An ongoing for many months. She is failed conservative treatment which is included physical therapy. X-rays showed no bony abnormality. MRI showed a possible subscapularis tendon tear with a subluxated biceps tendon from its groove. Surgical intervention was recommended. Risks and complications were discussed. Informed consent was obtained. Description of Procedure Patient was taken to the operating room and placed under general anesthesia. Timeout was performed. He she was given 300 milligrams of IV Cleocin for surgical prophylaxis. She did have 600 mg of IV Cleocin prior to that. She was prepped and draped in routine sterile fashion. I was present during the entire case, please see Dr. Crawley's operative report for further detail. She was awakened and transferred to the recovery room in stable condition. I attest to the content of the Intraoperative Record and any orders documented therein. Any exceptions are noted below.
--- NOTE | 2017-02-03 12:35 | OPERATIVE REPORT ---
DATE OF OPERATION: 02/03/2017 PREOPERATIVE DIAGNOSIS: Left shoulder subscapularis tear with subluxating biceps tendon. POSTOPERATIVE DIAGNOSES: Same plus subacromial bursitis, probable subacromial impingement, partial thickness supraspinatus tear and probable coracoid impingement. OPERATIVE PROCEDURE: Left shoulder arthroscopy, arthroscopic debridement of a partial thickness supraspinatus tear, arthroscopic bursectomy and subacromial decompression, open subscapularis repair and biceps tenodesis. SURGEON: Dr. Crawley. IN HOME CAREGIVER: Annie Gaviria. No resident or fellow available. ANESTHESIA: Laryngeal mask with interscalene block. INDICATIONS OF PROCEDURE: The patient is a 56-year-old female with pain and popping in the front of her left shoulder. She has failed nonoperative management. Her MRI shows a partial thickness tear of the subscapularis, and she has subluxation of the biceps tendon. PROCEDURE IN DETAIL: Informed consent was obtained. The patient was identified as Maria Isabel Ritchie. She identified the operative site as the left shoulder. I marked it with my initials. A preoperative surgical timeout was performed and a preop dose of IV antibiotics was given. She was taken to the operating room, positioned supine on the operating room table, the anesthetic was administered. She was positioned beach chair with her neck held in neutral alignment. The mastoid processes were padded. Kidney rests were utilized. The knees were flexed. All bony prominences including the heels were padded. The left upper extremity was prepped and draped in the usual sterile fashion. The exam under anesthesia revealed grade 2 laxity anterior and posterior with full range of motion equal to the opposite side. She did not have a markedly increased external rotation at any position of the arm elevation. She received a preop dose of IV antibiotics. She also received a stress dose of steroids. The arm was prepped and draped in usual sterile fashion. DVT prophylaxis will be done with early patient mobility and intraoperatively with foot pumps. In a posterior soft spot viewing portal was established followed by an anterior mid glenoid working portal. Diagnostic arthroscopy was performed. There was partial thickness fraying of the supraspinatus tendon without any notable thickness to the defect beyond a couple millimeters. This was at the leading edge. The biceps tendon could be subluxated out of its groove deep to the subscapularis which was partially torn at its upper border. The rotator interval tissue was resected and fraying of the subscapularis was debrided. There was some minor chondrosis of on the anterior glenoid at about the 11 o'clock position right at the rim. Labrum was intact circumferentially. The biceps anchor was stable. Biceps tenotomy was performed arthroscopically. The remainder of the structures and the shoulder appeared to be normal, the anterior capsule, articular surfaces of the glenoid and humeral head, the bare area posterior cuff axillary pouch. The scope was placed anterior to visualize the posterior structures. The upper rolled border of the subscapularis were readily identifiable with minimal retraction. The scope was then placed in the subacromial space and accessory lateral portal was created. Significant subacromial bursitis was noted and a thorough bursectomy was performed. The bursal side of the rotator cuff was intact. It was noted that there was a downward prominence in the center portion of the acromion, possibly consistent with a keeled type acromion. A modified cutting block acromioplasty was performed removing about 3-4 mm of the central and anterior bone from back to front and then from side to side. A good decompression was obtained. The shaver was run through the shoulder to pear picker loose debris. The cold cut was also utilized for exposure. The coracoacromial ligament was released. The shoulder was reprepped with ChloraPrep and the surgeon and assistant professor nurse education changed gloves. I then made a 7 cm incision along the deltopectoral interval. I bluntly dissected through the subcutaneous tissues until the deltopectoral interval was identified and then divided bluntly with my finger retracting the cephalic vein lateralward. The clavipectoral fascia was then incised and the subscapularis bursa was thoroughly removed. The lateral portion of the conjoined tendon was divided and the tip of the coracoid was exposed. In this position, it was noted that there was contact and potential pressure on the rotator cuff. A coracoplasty was performed by removing about 2-4 mm of anterior coracoid bone which was then smoothed with a rasp. Blunt dissection was done medially and the axillary nerve was identified. More lateral to this in the region of the pectoralis tendon, blunt dissection caused some bleeding to occur. This was medial to the humeral shaft, but appeared to be a small branch. This was initially packed off but was unsuccessful and I was able to identify the bleeder, grasped with DeBakey pickups and pinpoint electrocauterized it causing cessation of any significant bleeding. I identified the biceps groove and incised longitudinally, retrieved the biceps tendon and tagged it. The biceps tendon was inflamed but otherwise normal without tearing. I then dissected medialward and identified the tear as I elevated up the partial thickness tear of the upper subscap. There was a 2 x 2 x 3 cm type triangle of subscapularis tendon tissue that had torn off and a partial thickness fashion remaining only attached laterally, this was the upper perhaps 1/3 of the tendon. I identified the lateral border, tagged it. I then carefully mobilized using my finger and a Su elevator medially protecting the axillary nerve on the anterior surface. I also bluntly dissected deeply along with glenoid neck and mobilized the subscapularis. It was not notably stiff or contracted. I tenodesed the biceps tendon with a 5.5 mm PEEK corkscrew anchor using the standard tap as I was concerned about bone quality. This was placed in the upper portion of the bicipital groove and both sutures were utilized to tie the tendon down and the stump of the tendon was amputated. The acromioplasty felt fine. The supraspinatus was visualized and had no significant depth to the partial thickness tear. I placed 2 anchors for the subscapularis repair, 1 just lateral to the articular margin central and superior and the other one more inferior along the lesser tuberosity. The lesser tuberosity appeared to be prominent. I used a rongeur to remove several millimeters of bone to prevent any rubbing there. Microfracture was performed of the lesser tuberosity. This lesser tuberosity was prepared using a curette and rongeur down to bleeding bed of bone. The arm was then held in about 20 degrees of external rotation and the upper lateral border was able to be pulled over to the medial portion of the articular surface. Horizontal mattress stitches were applied there. I then repaired more lateral portion in a similar fashion. The sutures then tied in a tension free fashion. I then took the biceps tenodesis stitches, passed them up through the lateral portion of the subscapularis tissue and imbricated it down over top of the biceps. I then applied several #1 Vicryl stitches to close over the lower bicipital groove and the lateral portion of the rotator interval between the subscap and supraspinatus. The arm could easily be externally rotated 20 degrees without any notable abnormal tension. There was no notable bleeding at this point. The shoulder was irrigated with sterile saline copiously. The deltopectoral interval was closed with running #1 Vicryl. The coracoplasty revealed that a finger could be placed between the coracoid and the lesser tuberosity. The skin was then closed with 2-0 Vicryl and drew. The portals were closed with 4-0 nylon. A soft sterile dressing was applied with an ABD in the armpit. UltraSling applied. She was awakened from anesthesia without difficulty and taken to the recovery room in stable condition. There were no specimens or complications. Counts were correct at the end of case. Blood loss was approximately 50 mL. At the conclusion of the operation, I spoke to patient's and informed him of my findings. Detailed postoperative instructions were given. She will have passive range of motion. Her external rotation will be limited to neutral for the first 4 weeks and then we can advance her to 20 degrees after that. She will have passive movement of her biceps during that time as well. She will be rehabilitated according to the rotator cuff protocol. I attest to the content of the Intraoperative Record and any orders documented therein. Any exception s are noted below.
--- NOTE | 2017-02-03 12:46 | Anesthesia Progress Nt - [facility] ---
Anesthesia Post Op Note Date & Time Feb 03, 2017 at 12:46 Vital Signs Pain Intensity: 0 Vital Signs Past 12 Hours Date Time Temp Pulse Resp B/P (MAP) Pulse Ox O2 Delivery O2 Flow Rate FiO2 02/03/17 12:40 117/66 02/03/17 12:37 70 17 97 02/03/17 12:37 69 17 02/03/17 12:36 36.4 64 16 117/66 95 Room Air 02/03/17 12:35 121/70 02/03/17 12:32 67 14 94 02/03/17 12:32 68 14 02/03/17 12:30 117/68 02/03/17 12:27 70 15 02/03/17 12:27 71 15 97 02/03/17 12:25 109/65 02/03/17 12:22 67 17 97 02/03/17 12:22 67 17 02/03/17 12:20 120/63 02/03/17 12:17 71 17 99 02/03/17 12:17 71 17 02/03/17 12:15 108/64 02/03/17 12:12 71 15 02/03/17 12:12 71 15 100 02/03/17 12:10 120/63 02/03/17 12:07 69 12 02/03/17 12:07 70 12 99 02/03/17 12:05 110/63 02/03/17 12:02 69 12 02/03/17 12:02 70 12 98 02/03/17 12:00 129/68 02/03/17 11:57 69 18 97 02/03/17 11:57 69 18 02/03/17 11:55 101/62 02/03/17 11:52 76 23 02/03/17 11:52 76 23 99 02/03/17 11:50 118/67 02/03/17 11:49 123/62 02/03/17 11:48 36.4 72 12 123/62 98 Mask 6 02/03/17 08:47 0 02/03/17 08:42 0 02/03/17 08:37 73 11 100 02/03/17 08:37 73 02/03/17 08:36 74 02/03/17 08:36 74 25 100 02/03/17 08:35 143/72 02/03/17 08:31 69 02/03/17 08:31 68 13 99 02/03/17 08:30 123/76 02/03/17 08:26 74 02/03/17 08:26 74 38 98 02/03/17 08:25 131/70 02/03/17 08:21 70 02/03/17 08:21 70 11 99 02/03/17 08:20 121/82 02/03/17 08:16 68 11 98 02/03/17 08:16 68 02/03/17 08:15 134/78 02/03/17 08:11 69 14 100 02/03/17 08:11 69 02/03/17 08:10 138/81 02/03/17 08:07 69 02/03/17 08:07 69 11 98 02/03/17 08:05 129/77 02/03/17 08:02 69 12 98 02/03/17 08:02 69 02/03/17 08:00 135/82 02/03/17 07:57 67 12 98 02/03/17 07:57 67 02/03/17 07:55 136/81 02/03/17 07:52 70 13 99 02/03/17 07:52 71 02/03/17 07:51 72 16 96 02/03/17 07:51 72 02/03/17 07:50 134/80 02/03/17 07:46 72 19 99 02/03/17 07:46 72 02/03/17 07:45 145/83 02/03/17 07:41 77 11 99 02/03/17 07:41 74 02/03/17 07:40 137/83 02/03/17 07:36 75 19 97 02/03/17 07:36 74 02/03/17 07:35 138/82 02/03/17 07:32 79 24 146/82 (103) 99 Mask 5 02/03/17 07:31 72 22 100 02/03/17 07:31 72 02/03/17 07:30 144/82 02/03/17 07:26 76 12 99 02/03/17 07:26 76 02/03/17 07:25 140/77 02/03/17 07:22 146/82 02/03/17 07:21 79 24 02/03/17 06:39 36.4 71 16 131/84 (100) 97 Room Air Notes Mental Status: alert / awake / arousable, participated in evaluation Pt Amnestic to Procedure: Yes Nausea / Vomiting: adequately controlled Pain: adequately controlled Airway Patency, RR, SpO2: stable & adequate BP & HR: stable & adequate Hydration State: stable & adequate Anesthetic Complications: no major complications apparent
[2017-02-03 12:49] VITALS: TEMP 37
[2017-02-03 13:16] VITALS: BP 130/84; PULSE 80; O2SAT 96
== END | disposition home or self-care (01) ==
LOC: X.SURG 06:09
PROVIDERS: ATTEND Physical Medicine & Rehabilitation Sports Medicine
DX: M75.112 Incomplete rotator cuff tear or rupture of left shoulder, not specified as traumatic (principal); M75.52 Bursitis of left shoulder; M75.42 Impingement syndrome of left shoulder; I44.7 Left bundle-branch block, unspecified; I10 Essential (primary) hypertension; K21.9 Gastro-esophageal reflux disease without esophagitis; G47.33 Obstructive sleep apnea (adult) (pediatric); M35.3 Polymyalgia rheumatica; M19.90 Unspecified osteoarthritis, unspecified site; F41.9 Anxiety disorder, unspecified; Z79.899 Other long term (current) drug therapy

== ENCOUNTER → 2017-02-04 | Outpatient (CLI) | payer OTHER ==
[~2017-02-04] MED LIST changes: -ATROPINE SULFATE 0.1 MG/ML 5ML SYR IV PRN; -CLINDAMYCIN PHOS 150 MG/ML 2 ML VIAL IV SCH; -EpHEDrine SULFATE INJ 50 MG/ML AMP IV PRN; -EpHEDrine SULFATE INJ 50 MG/ML AMP ONE; -EpINEphrine INJ 1MG/ML AMP 1 MG/ML AMP ONE; -FENTANYL CITRATE INJ 50 MCG/1 ML 2 ML VIAL IV PRN; -FENTANYL CITRATE INJ 50 MCG/1 ML 2 ML VIAL ONE; -GLYCOPYRROLATE INJ 0.2 MG/ML VIAL ONE; -HYDROCORTISONE SOD SUCCINATE 100 MG/2 ML VIAL IV SCH; -LACTATED RINGER'S 1000ML 1,000 ML IV SCH; -LIDOCAINE HCL 2% 2 ML VIAL (20MG/ML) ONE; -LIDOCAINE/EPINEPHRINE 1% INJ 50 ML VIAL ONE; -MIDAZOLAM HCL 1 MG/ML 2ML VIAL ONE; -MoRPHine SULFATE 2 MG/ML CARP IV PRN; -MoRPHine SULFATE 4 MG/ML 1 ML CARP\\VIAL IV PRN; -NEOSTIGMINE METHYLSULFATE 5 MG/5 ML SYR ONE; -NURSING VERBAL MED ORDER ONE; -ONDANSETRON INJ 2 MG/ML 2 ML VIAL IV PRN; -ONDANSETRON INJ 2 MG/ML 2 ML VIAL ONE; -OXYCODONE/ACETAMINOPHEN 5-325 TAB PO PRN; -PROPOFOL IV EMULSION 10 MG/ML 20 ML VIAL IV ONE; -ROCURONIUM BROMIDE 10 MG/ML 5 ML VIAL IV ONE; -ROPIVACAINE 0.5% 5 MG/ML 30 ML VIAL ONE; -SODIUM CHLORIDE 0.9% 1000ML 1,000 ML IV SCH; -SODIUM CHLORIDE 0.9% INJ 10 ML VIAL ONE
== END | disposition home or self-care (01) ==
LOC: C.RDSM 13:31
PROVIDERS: ATTEND Physical Medicine & Rehabilitation Sports Medicine
DX: M75.102 Unspecified rotator cuff tear or rupture of left shoulder, not specified as traumatic (principal); W19.XXXA Unspecified fall, initial encounter

== ENCOUNTER → 2017-02-08 | Outpatient (CLI) | payer OTHER, BC ==
[~2017-02-08] MED LIST changes: -ESTRADIOL TOP; -FLUT0.15 NAE; -SPIR25TA6 PO; +SPR25 PO
--- NOTE | 2017-02-08 17:59 | DIAGNOSTIC IMAGING REPORT ---
L UPPER EXT JOINT WITHOUT CLINICAL HISTORY: 56 years-old Female with LEFT SHOULDER PAIN, FALL, R/O TEAR *WAIVER*. Acute left shoulder pain status post recent fall and recent left shoulder surgery on 02/03/2017 which included acromioplasty, coracoplasty, biceps tenodesis and subscapularis tendon repair. COMPARISON: Left shoulder radiographs 02/04/2017, left shoulder MRI 12/10/2016 TECHNIQUE: Multiplanar, multi sequence MRI of the left shoulder was performed without intravenous contrast. FINDINGS: Study is limited secondary to patient positioning. ROTATOR CUFF: Postoperative changes from prior subscapularis tendon repair. Screws are seen fixating the distal fibers within the lesser tuberosity. There is thickening of the distal tendon with a large degree of surrounding soft tissue edema, likely postsurgical. No evidence of retear or tendon retraction. There is moderate tendinosis of the supraspinatus without definite full-thickness tear or retraction identified. There is low-grade grade partial-thickness articular sided tearing of the anterior insertional fibers of the supraspinatus tendon which appears unchanged measuring 4 x 6 mm as seen on image 7 series 6 image 19 series 9. The infraspinatus and teres minor tendons are intact. BICEPS TENDON: Status post long head biceps tendon repair with tendon now appropriately located within the intertubercular groove. No evidence of retear or subluxation. LABRUM: There is fraying of the anterosuperior and to lesser extent inferior labrum which is likely chronic without evidence of acute tear. There is no evidence for a paralabral cyst. GLENOHUMERAL JOINT: The articular cartilage overlying the glenoid fossa is within normal limits. There is a moderate-sized glenohumeral joint effusion. There is no loose body or debris present within the glenohumeral joint. ACROMIOCLAVICULAR JOINT: Mild degenerative changes with capsular hypertrophy and marginal spurring of the AC joint. Edema and fluid is noted within the subacromial/subdeltoid bursa which may be postsurgical and/or reflect synovitis. Postoperative changes from prior acromioplasty. OUTLET SPACES: The suprascapular notch and quadrilateral space are without obstructing or space occupying lesions. BONE MARROW: No focal abnormality, fracture or marrow occupying lesion. SOFT TISSUES: Extensive soft tissue and intramuscular edema about the left shoulder which involves the deltoid and rotator cuff musculature. Micrometallic artifact from recent surgery is also noted about the shoulder. Susceptibility artifact in the region of the coracoid process and anterior subcutaneous tissues about the shoulder may reflect additional metallic debris or soft tissue air (for example nicely seen on images 4 through 12 of series 4). IMPRESSION: 1. Extensive soft tissue and intramuscular edema about the left shoulder with moderate glenohumeral joint effusion is likely postsurgical without evidence of drainable fluid collection. 2. Postoperative changes compatible with subscapularis tendon repair and long head biceps tenodesis. No evidence of re-tear. 3. Moderate supraspinatus tendinosis with low-grade partial-thickness articular sided tearing of the anterior insertional fibers which is unchanged. 4. No acute fracture or focal bone marrow edema. The above report was generated using voice recognition software. It may contain grammatical, syntax or spelling errors. Electronically signed by: Les Dinh M.D. 02/08/2017 5:57 PM Dictated Date/Time: 02/08/2017 4:40 PM
== END | disposition home or self-care (01) ==
LOC: C.MRIBC 15:43
PROVIDERS: ATTEND Physical Medicine & Rehabilitation Sports Medicine
DX: M75.102 Unspecified rotator cuff tear or rupture of left shoulder, not specified as traumatic (principal); W19.XXXA Unspecified fall, initial encounter

== ENCOUNTER → 2017-04-07 | Outpatient (CLI) | payer OTHER, BC | END | disposition home or self-care (01) | LOC: C.LAB1850 09:28 | PROVIDERS: ATTEND Internal Medicine Rheumatology | DX: R79.82 Elevated C-reactive protein (CRP) (principal); M35.3 Polymyalgia rheumatica; M25.512 Pain in left shoulder ==

== ENCOUNTER → 2017-04-13 | Outpatient (CLI) | payer OTHER, BC ==
--- NOTE | 2017-04-13 14:04 | DIAGNOSTIC IMAGING REPORT ---
R WRIST MIN 3 VIEWS ROUTINE CLINICAL HISTORY: 56 years-old Female presenting with M25.512. TECHNIQUE: Frontal, bilateral oblique, and lateral views of the right wrist were obtained. COMPARISON: None. FINDINGS: No acute fracture or malalignment. Bone island suspected in the distal radial metaphysis. No advanced degenerative change. No radiographic soft tissue abnormality. IMPRESSION: No acute osseous injury. Electronically signed by: Ethan Jaime M.D. 04/13/2017 2:03 PM Dictated Date/Time: 04/13/2017 2:00 PM
== END | disposition home or self-care (01) ==
LOC: C.RAD1850 13:49
PROVIDERS: ATTEND Internal Medicine Rheumatology
DX: M25.512 Pain in left shoulder (principal); M25.531 Pain in right wrist; M35.3 Polymyalgia rheumatica; R79.82 Elevated C-reactive protein (CRP)

== ENCOUNTER → 2017-05-10 | Outpatient (CLI) | payer OTHER, BC | END | disposition home or self-care (01) | LOC: C.LAB1850 08:25 | PROVIDERS: ATTEND Internal Medicine Rheumatology | DX: R79.82 Elevated C-reactive protein (CRP) (principal); M35.3 Polymyalgia rheumatica; M25.512 Pain in left shoulder; Z79.52 Long term (current) use of systemic steroids ==

== ENCOUNTER → 2017-06-30 | Outpatient (CLI) | payer OTHER, BC | END | disposition home or self-care (01) | LOC: C.LAB1850 09:48 | PROVIDERS: ATTEND Internal Medicine Rheumatology | DX: M35.3 Polymyalgia rheumatica (principal); M25.539 Pain in unspecified wrist ==

== ENCOUNTER → 2017-09-09 | Outpatient (CLI) | payer OTHER, BC ==
[~2017-09-09] MED LIST changes: -OXYC-57 PO; +SPIR25TA6 PO; -SPR25 PO
== END | disposition home or self-care (01) ==
LOC: C.RDSM 09:11
PROVIDERS: ATTEND Physical Medicine & Rehabilitation Sports Medicine
DX: M25.511 Pain in right shoulder (principal); Z91.040 Latex allergy status; Z88.0 Allergy status to penicillin; Z88.1 Allergy status to other antibiotic agents; Z88.8 Allergy status to other drugs, medicaments and biological substances

== ENCOUNTER → 2017-09-13 | Outpatient (CLI) | payer OTHER, BC | END | disposition home or self-care (01) | LOC: C.LAB1850 13:54 | PROVIDERS: ATTEND Internal Medicine Rheumatology | DX: M25.539 Pain in unspecified wrist (principal) ==

== ENCOUNTER → 2017-09-15 | Outpatient (CLI) | payer OTHER, BC ==
--- NOTE | 2017-09-15 08:16 | DIAGNOSTIC IMAGING REPORT ---
MRI OF THE RIGHT SHOULDER WITHOUT CONTRAST CLINICAL HISTORY: Right shoulder pain and limited range of motion. COMPARISON STUDY: Right shoulder radiographs September 09, 2017. TECHNIQUE: Utilizing a 1.5 Bria magnet and dedicated coil, multiplanar, multiecho imaging of the right shoulder without intravenous or intra-articular contrast. FINDINGS: Alignment of the right shoulder is anatomic. There is no marrow edema or marrow replacement. There is moderate osteoarthritis of the acromioclavicular joint and mild osteoarthritis of the glenohumeral joint. The posterior superior glenoid labrum is truncated. This favors a chronic tear. The proximal long head of biceps tendon is medially subluxed with suspected partial thickness tear within this tendon. There is a partial thickness tear of subscapularis. There is mild tendinopathy of infraspinatus. Note is made of a partial thickness tear of the anterior distal articular fibers of supraspinous. There is no tendon retraction or muscular atrophy. No mass or fluid collection is shown. IMPRESSION: 1. Partial thickness articular surface tear of distal supraspinatus. No tendon retraction or muscular atrophy. Infraspinatus tendinopathy. 2. Partial thickness tear of subscapularis. 3. Medial subluxation of the proximal long head of the biceps tendon with suspected partial thickness tear. 4. Truncated posterior superior labrum which suggests a chronic tear. 5. Moderate osteoarthritis of the right acromioclavicular joint. Electronically signed by: Zen Wolfe M.D. 09/15/2017 8:15 AM Dictated Date/Time: 09/15/2017 7:48 AM
== END | disposition home or self-care (01) ==
LOC: C.MRI 06:20
PROVIDERS: ATTEND Physical Medicine & Rehabilitation Sports Medicine
DX: M75.111 Incomplete rotator cuff tear or rupture of right shoulder, not specified as traumatic (principal); M19.011 Primary osteoarthritis, right shoulder

== ENCOUNTER 2021-11-03 07:48 | Observation (INO) ==
--- NOTE | 2021-10-30 09:55 | Anesthesiology Consultation ---
Date of Service October 30, 2021 Assessment & Plan (1) Encounter for pre-operative examination: - check CBC with diff and BMP STAT am DOS. - COVID screening: Per statistics manager on 10/22/2021: Travel screen negative, no known COVID-19 positive contacts or current COVID-19 related symptoms in past 2 weeks. To surgeon's discretion if preop COVID testing needed. Chart Review Chart Review: Acceptable Risk for Surgery and Patient NOT seen in Pre Admission Testing History Surgery Operation Date: 11/03/21 07:00 Proposed Procedures p Right Knee Arthroscopy, ACL Resconstruction, Bone Tendon Bone Allograft, Anterolateral Ligament Recontruction - Ethan Crawley MD Height/Weight Height: 5 ft 4 in Weight: 70.307 kg Allergies Allergy/AdvReac Type Severity Reaction Status Date / Time gabapentin Allergy Severe TREMORS Verified 10/22/21 09:46 AND MEMORY LOSS azithromycin Allergy Intermediate Diarrhea Verified 10/22/21 09:46 latex Allergy Intermediate HIVES Verified 10/22/21 09:46 rizatriptan Allergy Intermediate increased Verified 10/22/21 09:46 bp topiramate Allergy Intermediate weight loss Verified 10/22/21 09:46 vancomycin Allergy Intermediate REDNESS Verified 10/22/21 09:46 lactose Allergy Mild gi problems Verified 10/22/21 09:46 Penicillins Allergy Mild RASH Verified 10/22/21 09:46 propranolol Allergy Mild SOB AND Verified 10/22/21 09:46 KIDNEY PROBLEMS OR WEIGHT LOSS Medications Home Medications Medication Instructions Recorded Confirmed Last Taken acetaminophen 500 mg tablet 1,000 mg PO BID PRN Pain 10/06/17 10/22/21 09/04/20 (Tylenol Extra Strength) lamotrigine 150 mg tablet 150 mg PO QAM 10/06/17 10/22/21 09/04/20 (Lamictal) omeprazole 20 mg capsule,delayed 1 tab PO QAM 10/06/17 10/22/21 09/04/20 release prazosin 2 mg capsule 4 mg PO QPM 10/06/17 10/22/21 09/03/20 sertraline 100 mg tablet 200 mg PO QAM 10/06/17 10/22/21 09/04/20 cyclobenzaprine 10 mg tablet 10 mg PO TID PRN Muscle Pain 09/15/18 10/22/21 Unknown folic acid 1 mg tablet 2 mg PO QAM 09/15/18 10/22/21 09/04/20 cholecalciferol (vitamin D3) 125 125 mcg PO QAM 08/28/20 10/22/21 09/04/20 mcg (5,000 unit) tablet (Vitamin D3) hydroxychloroquine 200 mg tablet 200 mg PO QAM 08/28/20 10/22/21 09/04/20 hydroxyzine HCl 25 mg tablet 25 - 50 mg PO UD PRN Anxiety 08/28/20 10/22/21 Unknown ibuprofen 400 mg tablet 400 mg PO TID PRN Pain 08/28/20 10/22/21 09/04/20 prazosin 1 mg capsule 1 mg PO QPM 08/28/20 10/22/21 09/03/20 conjugated estrogens 0.625 mg/gram 0.3125 mg vaginal 3XWK #30 grams 03/06/21 10/22/21 Unknown vaginal cream (Premarin) biotin 5,000 mcg disintegrating 5,000 mcg PO QAM 10/22/21 10/22/21 Unknown tablet eknqwuyxar-qjvpsspfnfqnd-eflugirm 1 tab PO Q6H PRN Migraine Headache 10/22/21 10/22/21 Unknown 50 mg-325 mg-40 mg tablet multivitamin 1 tab PO QAM 10/22/21 10/22/21 Unknown nebivolol 10 mg tablet 10 mg PO QAM 10/22/21 10/22/21 Unknown quetiapine 300 mg tablet 300 mg PO HS 10/22/21 10/22/21 Unknown tramadol 50 mg tablet 50 mg PO Q6H PRN Pain 10/22/21 10/22/21 Unknown Past Medical History Medical History (Updated 10/30/21 @ 09:51 by Kenisha Simons PA-C) Anxiety and depression Bundle branch block, left follows with Dr. Jean Chronic back pain Chronic steroid use Fibromyalgia History of COVID-19 12/2020>RESOLVED History of migraine headaches HTN (hypertension) Inflammatory arthritis Muscle spasm Polymyalgia rheumatica Post traumatic stress disorder Right knee injury recent fall; upcoming appt with ortho; currently on crutches Sleep apnea no device Past Family History Family History Uncle Heart disease Stroke Grandmother (Maternal) Pancreas cancer Father Stroke Aunt Stroke Sister Breast cancer Other Cancer Cardiomyopathy Diabetes Hypertension No family history of adverse response to anesthesia Denies family history of Ovarian cancer Colorectal cancer Past Surgical History Surgical History (Updated 10/30/21 @ 09:52 by Kenisha Simons PA-C) Cystocele CYSTOCELE AND RECTOCELE REPAIRED H/O arthroscopy of right knee H/O bilateral cataract extraction History of cardiac cath approx 15 years ago - [facility] - no stents History of cholecystectomy History of colonoscopy History of endometrial ablation History of repair of rotator cuff RT/LEFT. Right 11/10/17: LMA#4. [place] teeth removed Social History Smoking Status: Never smoker Hx Alcohol Use: No Hx Substance Use: No substance use type: marijuana Substance Use Type Other:: MEDICAL MARIJUANA Last Used Substance: Hours (ago) Last Used Substance Other:: MEDICAL MARIJUANA ORAL USE 3 TIMES A DAY Testing Electrocardiogram Date: 10/23/21 NSR, rate 70 bpm Left axis deviation LBBB
[~2021-11-03 07:48] MED LIST changes: +BUPIVACAINE 0.5 % 5 MG/1 ML PF 10ML VIAL ONE; +CLINDAMYCIN/D5W 600 MG/50 ML BAG **Premixed Bag IV SCH; -CYCL10TA6 PO; -LMC/150 PO; -LOSA1TAB PO; +LR 15ML/HR IV SCH; -LYR50 PO; -NEBI2.5T2 PO; -NUTRTAB40 PO; -OMEP20CA9 PO; -PRAZ2CAP3 PO; -PRD/1 PO; -PREG100C PO; -PRMVC PV; +ROPIVACAINE 0.5% 5 MG/ML 30 ML VIAL ONE; -SERT-234 PO; -SPIR25TA6 PO; -SRQ300 PO; +TRANEXAMIC ACID / 0.7% NACL 1,000 MG/100 ML BAG IV ONE; -VITATAB19 PO; -VST25HP PO
[2021-11-03 08:09] LABS: Basophils # (auto) 0.03 K/uL (0-0.2); Basophils % (auto) 0.6 %; Eosinophils # (auto) 0.11 K/uL (0-0.50); Eosinophils % (auto) 2.1 %; Hematocrit (blood only) 40.2 % (34.1-44.9); Hemoglobin 13.5 g/dl (12.0-16.0); Immature Granulocytes # (auto) 0.01 K/uL (0.00-0.02); Immature Granulocytes % (auto) 0.2 %; Lymphocytes # (auto) 1.81 K/uL (1.2-3.4); Lymphocytes % (auto) 34.3 %; Mean Corpuscular Hemoglobin 30.4 pg (25.0-34.0); Mean Corpuscular Hgb Conc 33.6 g/dL (32.0-36.0); Mean Corpuscular Volume 90.5 fL (80.0-100.0); Mean Platelet Volume 9.2 fL (9.4-12.3); Monocytes # (auto) 0.42 K/uL (0.24-0.82); Neutrophils % (auto) 54.8 %; Platelet Count 232 K/uL (130-400); RDW Coefficient of Variation 12.5 % (11.5-14.5); RDW Standard Deviation 41.3 fL (36.4-46.3); Red Blood Count 4.44 M/uL (3.93-5.22); White Blood Count 5.28 K/ul (4.8-10.8)
[2021-11-03] MEDS ORDERED: fentaNYL citrate 100 MCG/2 ML VIAL ONE (08:11)
[2021-11-03] MEDS ORDERED: PROPOFOL IV EMULSION 10 MG/ML 20 ML VIAL IV ONE (08:11)
[2021-11-03] MEDS ORDERED: LIDOCAINE 2% MPF LOCAL 5 ML VIAL INFIL ONE (08:11)
[2021-11-03] MEDS ORDERED: DEXAMETHASONE SOD INJ 4 MG/ML VIAL ONE (08:11)
[2021-11-03] MEDS ORDERED: ONDANSETRON INJ 2 MG/ML 2 ML VIAL ONE ×2 (08:11→14:21)
[2021-11-03] MEDS ORDERED: MIDAZOLAM HCL 1 MG/ML 2ML VIAL ONE (08:11)
[2021-11-03 08:32] LABS: BUN Creatinine Ratio 20.4 (10-20); Calcium 9.1 mg/dl (8.5-10.1); Creatinine Clr Calc Pharmacy 61.1 ml/min; Est GFR (African American) 76.9 ml/min; Est GFR (Non-African American) 66.3 ml/min; Potassium 3.5 mmol/L (3.5-5.1)
[2021-11-03] MEDS ORDERED: ONDANSETRON INJ 2 MG/ML 2 ML VIAL IV PRN ×2 (09:53→16:07)
[2021-11-03] MEDS ORDERED: HYDROmorphone INJ 1 MG/ML SYRINGE IV PRN ×2 (09:53→16:07)
[2021-11-03] MEDS ORDERED: ATROPINE SULFATE 0.1 MG/ML 10ML SYR IV PRN (09:53)
[2021-11-03] MEDS ORDERED: PROMETHAZINE HCL 6.25 MG in SODIUM CHLORIDE 0.9% 50 ML IV PRN (09:53)
[2021-11-03] MEDS ORDERED: KETOROLAC 30 MG/ML VIAL IV PRN (09:53)
--- NOTE | 2021-11-03 10:07 | History & Physical Bridge Note ---
Date of Service November 03, 2021 History & Physical Bridge Note I have examined the patient, reviewed the History & Physical and in the interval since the performance of the History & Physical I have noted the following changes of clinical significance: no changes noted
[2021-11-03] MEDS ORDERED: LIDOCAINE 1% LOCAL 20 ML VIAL ONE (10:36)
[2021-11-03] MEDS ORDERED: BUPIVACAINE 0.5 % 5 MG/1 ML MPF 30ML VIAL ONE (10:36)
[2021-11-03] MEDS ORDERED: EPINEPHrine INJ 1 MG/ML AMP ONE (10:36)
[2021-11-03] MEDS ORDERED: ePHEDrine sulfate 50 MG/ML AMP ONE (11:40)
[2021-11-03] MEDS ORDERED: KETAMINE 50 MG/5 ML SYRINGE ONE (11:40)
[2021-11-03] MEDS ORDERED: HYDROmorphone INJ 2 MG/ML SYR/VIAL ONE (11:53)
--- NOTE | 2021-11-03 14:38 | Operative Report ---
Post Operative Report Pre & Post Diagnosis Operation Date: 11/03/21 10:30 Pre-Op Diagnosis: Right Knee ACL Tear Post-Op Diagnosis: Right Knee ACL Tear I identified the patient and participated in the time-out.: Yes Procedure Operation Date: 11/03/21 10:30 Actual Procedures p Right Knee Arthroscopy, ACL Resconstruction, Bone Tendon Bone Allograft, Anterolateral Ligament Recontruction with Allograft, Partial Medial Meniscectomy(Right) - Ethan Crawley MD Surgeon Ethan Crawley M.D. Asset Protection Greeter Annie Gaviria PA-C Estimated Blood Loss 20 Findings Consistent with Post-Op Diagnosis Specimens No specimens Anesthesia Type General Regional Description of Procedure Patient was taken to the operating room, placed under general anesthesia, time out performed. Prepped and draped in routine sterile fashion. I was present during the entire case, please see Dr. Crawley's operative report for further detail. Patient was awakened and taken to the recovery room in stable condition. I attest to the content of the Intraoperative Record and any orders documented therein. Any exceptions are noted below.
--- NOTE | 2021-11-03 15:46 | Anesthesiology Progress Note ---
Date of Service November 03, 2021 Anesthesia Post Procedure Vital Signs Vital Signs: Temp Pulse Pulse Pulse Resp BP BP 11/03/21 15:30 37.3 C 86 18 140/74 11/03/21 15:15 83 16 142/79 H 11/03/21 15:05 84 13 138/80 11/03/21 14:55 85 17 140/75 11/03/21 14:45 89 16 127/70 11/03/21 14:37 36.8 C 89 20 141/80 H 11/03/21 10:35 79 18 137/77 11/03/21 08:16 37.3 C 92 H 18 164/93 H Pulse Ox O2 Del Method O2 Flow Rate 11/03/21 15:30 96 Room Air 11/03/21 15:15 93 Room Air 11/03/21 15:05 94 Room Air 11/03/21 14:55 94 Oxymask 6 11/03/21 14:45 97 Oxymask 6 11/03/21 14:37 96 Oxymask 6 11/03/21 10:35 95 Oxymask 5 11/03/21 08:16 98 Room Air Pain Intensity Right Knee: Pain Intensity: 4 Transfer of Care Handoff Completed per policy Notes Mental Status: alert / awake / arousable and participated in evaluation Patient Amnestic to Procedure: Yes Nausea / Vomiting: adequately controlled Pain: adequately controlled Airway Patency, RR, SpO2: stable & adequate BP & HR: stable & adequate Hydration State: stable & adequate Anesthetic Complications: no major complications apparent
[2021-11-03] MEDS ORDERED: MAGNESIUM HYDROXIDE SUSP 30 ML UDC PO PRN (16:07)
[2021-11-03] MEDS ORDERED: CYCLOBENZAPRINE HCL 10 MG TAB PO PRN (16:07)
[2021-11-03] MEDS ORDERED: bisacodyL 10 MG SUPP PR PRN (16:07)
[2021-11-03] MEDS ORDERED: NALOXONE HCL 0.4 MG/1 ML VIAL/CARP IV PRN (16:07)
[2021-11-03] MEDS ORDERED: HYDROmorphone INJ 0.5 MG/0.5 ML SYR IV PRN (16:07)
[2021-11-03] MEDS ORDERED: traMADol HCL 50 MG TABLET PO PRN (16:07)
--- NOTE | 2021-11-03 17:01 | Operative Report ---
Post Operative Report Pre & Post Diagnosis Operation Date: 11/03/21 10:30 Pre-Op Diagnosis: Right Knee ACL Tear medial meniscus tear Post-Op Diagnosis: Same I identified the patient and participated in the time-out.: Yes Procedure Operation Date: 11/03/21 10:30 Actual Procedures p Right Knee Arthroscopy, ACL Resconstruction, Bone Tendon Bone Allograft, Partial Medial Meniscectomy(Right) - Ethan Crawley MD Surgeon Ethan Crawley MD Continuing Education Director Annie Gaviria PA-C no resident or fellow available Estimated Blood Loss 20 Findings Consistent with Post-Op Diagnosis Specimens None Anesthesia Type General Regional Complications none Disposition Accompanied Patient To Recovery: No Disposition: Recovery Room Indications Maria Isabel is 61 years old. She had an acute tear of her ACL about 1 year ago. She has a prior history of a partial medial meniscectomy. She has continued to have right knee pain and instability episodes despite physical therapy activity modification and bracing. She has elected to proceed with ACL reconstruction. She also has inflammatory arthritis and she has stopped her prednisone about a month ago and discontinued her leflunomide 2 weeks ago. She can continue her Plaquenil. The leflunomide can be restarted no sooner than 2 weeks postop. Description of Procedure Informed consent obtained. Patient identified. She identified the operative site as the right knee. I marked with my initials. He preoperative surgical timeout was performed. A preop dose of IV antibiotics was given. She was taken to the operating room positioned supine on the operating room table. A laryngeal mask anesthetic and nerve block were administered. The leg was prepped and draped in the usual sterile fashion. A lateral post for stressing the knee. A tourniquet on the right thigh. DVT prophylaxis with foot pumps intraoperatively. Postoperatively with early mobility mechanical devices and Lovenox. The exam under anesthesia revealed range of motion 4 degrees hyperextension to 140 degrees of flexion. She had 1+ MCL and LCL laxity in mid position. The knee was stable in full extension posterior drawer was negative. She had a 2+ positive Stu with an indistinct endpoint and a grade 2 pivot shift. Inferolateral viewing portal superior lateral outflow portal and inferomedial working portals were established. Diagnostic arthroscopy was performed. There is no pathology in the suprapatellar pouch. There was some chondral debris about the knee. There was grade 1 and 2 chondrosis diffusely of the median ridge of the patella but no other significant defects were noted. There was grade 1 and 2 chondrosis of the trochlea. The medial lateral gutters were unremarkable. The ACL looked intact however its femoral attachment was completely detached and it was scarred into the PCL. PCL normal. The lateral meniscus showed some fraying on its inner rim which was debrided there was grade 1 and 2 chondrosis diffusely of the tibial plateau and also of the weightbearing area of the lateral femoral condyle. Popliteus intact meniscus stable without large tear. Posterior medial lateral compartments were normal. The medial meniscus showed a degenerative frayed and torn meniscus which had been previously operated on. There was grade 1 opening of the medial compartment. Partial medial meniscectomy was performed using shaver and basket forceps. The meniscal roots were intact. The graft was call for an prepared on the back table. Overall graft length was 105 mm. The tibial block was made into a 9 x 21 plug to be placed into the femur. The patella was made into a 10 x 40 mm plug to be placed in the tibia. Tendon length was 45. Markings and drill holes were made and the graft was placed in the back table for safekeeping and a cup. The ACL was debrided. The center of the tibial attachment on the ACL was identified and marked. The soft tissue of the lateral intercondylar notch was debrided. The lateral intercondylar ridge was identified. The lateral bifurcate ridge was less prominent. A guy was made at the anatomic center based upon landmarks. Accessory medial portal was utilized and created with a spinal needle. The Arthrex guide was set at 55 degrees and placed into the accessory medial portal. A guidepin was drilled into place and found to be in good position and overreamed with a 9 mm reamer. The intra and extra-articular entrances were cleaned. The intra-articular aperture was beveled with a rasp. The tunnel was in good position within the center of the [place] ACL footprint. The tunnel was then dilated to a 10. The knee was then placed into the hyperflexed position and through the accessory medial portal the spade tip guidewire was introduced to the previous guy. It was advanced through the bone. Femoral width was 35 mm. A 9 mm low-profile reamer was utilized to make a socket 25 mm in depth. The knee was cleaned of bony debris and a shuttling suture was passed. Prior to that dilating was performed up to size 10. Final preparations were done on the graft and that was then easily passed into position with the collagen posterior. The knee was cycled for isometry and the graft tightened 2 to 3 mm in terminal extension. The knee was then placed in the hyperflexed position. A guidewire was placed for the graft nursing home assistant administrator through the accessory medial portal followed by an 8 x 20 round headed interference screw with excellent position. Anterior to the graft. There was no roof wall or PCL impingement. Prior to placing the graft it was noted that the notch was stenotic and a an anterior notchplasty was performed. The knee was then held at 0 degrees of extension. The graft protruded several centimeters from the tunnel. I rotated it clockwise 180 degrees which shorten the graft about 5 mm. This gave 15 mm of good bone within the tunnel. I then used the graft nursing home assistant administrator and the nitinol followed by a 9 x 20 fully threaded interference screw. This gave good graft security. I then amputated the remaining graft outside the tunnel and tied the 2 traction stitches over a 3.5 mm bicortical post and washer. Prior to drilling tunnels and passing the graft the tourniquet was inflated and at the conclusion the operation after about 70 minutes it was deflated. The Stu was negative. Endpoint firm. Pivot shift was trace if any. There was no roof wall or PCL impingement and I inspected the graft after hardware placement and found to be acceptable in terms of tension and hardware positioning. The anterior incision for the graft which was made prior to graft patches was closed with 0 Vicryl followed by a 3-0 Prolene suture. The portals were closed with 4-0 nylon. The leg was cleaned wet and dry sponges and a bulky soft steri le dressing was applied Xeroform 4 x 4's ABD full-length [place] wrap cast padding and hinged brace locked in extension. She was awakened anesthesia difficulty taken to the recovery room stable condition. There were no specimens or complications. Counts were correct. Blood loss is estimated to be 10 cc. At the conclusion of the operation I looked for the patient's but he was not to be found in the waiting room and we did not have the correct phone number for him. She will be admitted to the hospital for pain control and rehabilitation. She received a routine course of postop IV antibiotics. Her prednisone and leflunomide will be held. She will begin PT and OT and she will be partial weightbearing less than 50%. Otherwise she will be rehabilitated according to the ACL protocol with precautions. I attest to the content of the Intraoperative Record and any orders documented therein. Any exceptions are noted below.
--- NOTE | 2021-11-03 17:27 | Orthopedic Progress Note ---
Date of Service November 03, 2021 Assessment & Plan (1) ACL (anterior cruciate ligament) tear: Plan: Status post right knee arthroscopy, ACL reconstruction with Dr. Crawley today. Partial weightbearing right lower extremity. With assistance of walker or crutches. Keep brace on at all times. Ice to right knee as needed for pain and swelling. Regular diet as ordered. PT and OT as ordered. Pain medication as prescribed. Out of bed with assistance. Case management for disposition needs. Lovenox for DVT prophylaxis to start tomorrow. Will discuss findings with Dr. Crawley. Will reeval in AM. Plan for discharge to home tomorrow if pain controlled. Admission and Anticipated Discharge Date Admission Date: November 03, 2021 Subjective Patient resting in bed. at bedside. No issues with pain in her right knee. She is just getting to a room and settled. Denies any nausea or vomiting. Denies any chest pain or shortness of breath. Does not have any pain in her right knee. Physical Exam Musculoskeletal: Brace is intact. Dressings are clean dry and intact. She does have full active range of motion of her toes and ankle. Dorsalis pedis pulses 1+. Foot is warm. Capillary fill is brisk. Distal sensation seems to be normal. Strength is 5/5. Results & Data ([facility]) Vital Signs (Past 12 Hours) Vital Signs Temp Pulse Pulse Pulse Resp BP BP 11/03/21 16:30 77 14 154/81 H 11/03/21 16:15 79 12 149/81 H 11/03/21 16:45 79 16 158/87 H 11/03/21 16:00 80 14 147/80 H 11/03/21 15:45 83 12 137/76 11/03/21 15:30 37.3 C 86 18 140/74 11/03/21 15:15 83 16 142/79 H 11/03/21 15:05 84 13 138/80 11/03/21 14:55 85 17 140/75 11/03/21 14:45 89 16 127/70 11/03/21 14:37 36.8 C 89 20 141/80 H 11/03/21 10:35 79 18 137/77 11/03/21 08:16 37.3 C 92 H 18 164/93 H Pulse Ox O2 Del Method O2 Flow Rate 11/03/21 16:30 94 Room Air 11/03/21 16:15 95 Room Air 11/03/21 16:45 96 Room Air 11/03/21 16:00 95 Room Air 11/03/21 15:45 94 Room Air 11/03/21 15:30 96 Room Air 11/03/21 15:15 93 Room Air 11/03/21 15:05 94 Room Air 11/03/21 14:55 94 Oxymask 6 11/03/21 14:45 97 Oxymask 6 11/03/21 14:37 96 Oxymask 6 11/03/21 10:35 95 Oxymask 5 11/03/21 08:16 98 Room Air
[2021-11-03] MEDS: oxyCODONE HCL IR 5 MG TAB (IMMEDIATE RELEASE) PO PRN ×2 (18:29→23:56)
[2021-11-03] MEDS: SODIUM CHLORIDE 0.9% 1000ML 1,000 ML IV SCH (18:38)
[2021-11-03] MEDS: ceFAZolin 2000MG 2,000 MG/15 ML SYR IV SCH (19:54)
[2021-11-03] MEDS: DOCUSATE SODIUM 100 MG CAP PO SCH (19:54)
[2021-11-03] MEDS ORDERED: PRAZOSIN HCL 1 MG CAP PO SCH ×3 (21:00)
[2021-11-03] MEDS ORDERED: SENNA 8.6 MG TAB PO SCH (21:00)
[2021-11-03] MEDS ORDERED: QUEtiapine FUMARATE 300 MG TABLET PO SCH (21:00)
[2021-11-03] MEDS: ACETAMINOPHEN 500 MG TAB PO SCH (22:12)
[2021-11-04] MEDS: SODIUM CHLORIDE 0.9% 1000ML 1,000 ML IV SCH (04:57)
[2021-11-04] MEDS: ACETAMINOPHEN 500 MG TAB PO SCH (05:01)
[2021-11-04] MEDS: ceFAZolin 2000MG 2,000 MG/15 ML SYR IV SCH (05:09)
[2021-11-04] MEDS: oxyCODONE HCL IR 5 MG TAB (IMMEDIATE RELEASE) PO PRN ×2 (05:51→10:18)
[2021-11-04] MEDS ORDERED: ENOXAPARIN INJ 30 MG/0.3 ML SYR SQ SCH (08:00)
[2021-11-04 08:24] LABS: Creatinine Clr Calc Pharmacy 73.6 ml/min; Est GFR (African American) 96.6 ml/min; Est GFR (Non-African American) 83.3 ml/min
[2021-11-04] MEDS: KETOROLAC 30 MG/ML VIAL IV PRN ×2 (08:27→13:14)
[2021-11-04] MEDS: DOCUSATE SODIUM 100 MG CAP PO SCH (08:44)
[2021-11-04] MEDS ORDERED: PANTOprazole 40 MG TAB PO SCH (09:00)
[2021-11-04] MEDS ORDERED: CHOLECALCIFEROL 5,000 UNITS 125 MCG TAB PO SCH (09:00)
[2021-11-04] MEDS ORDERED: lamoTRIgine 100 MG TAB PO SCH (09:00)
[2021-11-04] MEDS ORDERED: FOLIC ACID 1 MG TAB PO SCH (09:00)
[2021-11-04] MEDS ORDERED: METOPROLOL TARTRATE 50 MG TAB PO SCH (09:00)
[2021-11-04] MEDS ORDERED: HYDROXYCHLOROQUINE SULFATE 200 MG TAB PO SCH (09:00)
[2021-11-04] MEDS ORDERED: MULTIVITAMIN TAB PO SCH (09:00)
[2021-11-04] MEDS ORDERED: NON-FORMULARY MEDICATION (Biotin 5,000 mcg Tablet,Disintegrating) PO SCH (09:00)
[2021-11-04] MEDS ORDERED: SERTRALINE HCL 100 MG TABLET PO SCH (09:00)
--- NOTE | 2021-11-04 09:42 | Orthopedic Progress Note ---
Date of Service November 04, 2021 Assessment & Plan (1) ACL (anterior cruciate ligament) tear: Plan: Doing well. We will see how she manages with PT. If well and pain controlled can consider discharge. Surgical findings are discussed. We talked about follow-up in PT bathing instructions. Weightbearing is partial leave brace intact. Some exercises are reviewed. Lovenox for DVT prophylaxis. Stay off leflunomide and prednisone for now. Admission and Anticipated Discharge Date Admission Date: November 03, 2021 Subjective Doing well. Pain controlled. PT pending. Physical Exam Physical Exam: DP and PT pulses 1+ palpable she has 5 out of 5 ankle and toe plantarflexion dorsiflexion inversion and eversion strength. Dressing is clean and dry. Sensation intact. Results & Data ([facility]) Vital Signs (Past 12 Hours) Vital Signs Temp Pulse Resp BP Pulse Ox O2 Del Method 11/04/21 07:24 37.0 C 78 16 107/68 97 Room Air 11/04/21 05:03 36.8 C 81 18 107/68 96 Room Air 11/03/21 23:59 37.1 C 85 18 127/75 95 Room Air
--- NOTE | 2021-11-04 10:48 | Discharge Summary ---
Date of Service November 04, 2021 Discharge Data Procedures Performed Operation Date: 11/03/21 10:30 Actual Procedures p Right Knee Arthroscopy, ACL Resconstruction, Bone Tendon Bone Allograft, Anterolateral Ligament Recontruction with Allograft, Partial Medial Meniscectomy(Right) - Ethan Crawley MD Hospital Course (1) ACL (anterior cruciate ligament) tear: Patient underwent right knee arthroscopy, partial meniscectomy, ACL reconstruction with allograft with Dr. Crawley on November 03, 2021 of [facility]. Her surgery was performed with general anesthesia and a peripheral nerve block. She was given IV Ancef and clindamycin preoperatively. Her IV Ancef was continued for 24 hours after surgery. She was allowed out of bed, partial weightbearing right lower extremity with her postoperative range of motion brace on at all times and use of a walker or crutches. Her home medications were resumed. She was given a regular diet. Her vital signs remained stable during her inpatient stay. She did well out of bed with physical therapy and Occupational Therapy and was deemed safe for discharge to her home. Her pain was well controlled with her were tramadol and oxycodone. Her dressings remained clean and dry. Brace was also comfortable. She was placed on Lovenox 30 mg p.o. twice daily for 2 weeks postoperative for DVT prophylaxis. Discharge instructions were reviewed. She was discharged to her home in stable condition with her on November 04, 2021. She will follow-up as scheduled early next week for her postoperative physical therapy appointment. Her pain medication prescriptions were sent to her pharmacy. We also sent his prescription for her Lovenox. She will obtain a CBC on Tuesday on November 09, 2021 as instructed. Prescription was provided for that as well. She will get this done as an outpatient. All questions were answered.
== END 2021-11-04 14:17 | disposition home or self-care (01) ==
LOC: ASU 07:48 → PACUINP 07:48 → 3N 16:57